=== PATIENT | female | born 1980 | race Caucasian/White ===

== ENCOUNTER 2017-01-25 12:10 | Emergency (ER) | payer MEDICAID ==
[~2017-01-25] VITALS: Ht 157.5 cm; Wt 93.3 kg
[~2017-01-25 12:10] MED LIST: BACT800T5 PO; CEPH500C3 PO; LEXA10TA PO
[2017-01-25 12:23] VITALS: BP 115/69; PULSE 98; RESP 16; TEMP 98.8; O2SAT 97
[2017-01-25] MEDS ORDERED: LEXA10TA PO (12:34)
--- NOTE | 2017-01-25 12:35 | PD ---
HPI Chief Complaint: Cold / Flu Symptoms Time Seen by Provider: 12:35 Travel History International Travel<30 days: No Contact w/Intl Traveler<30days: No Traveled to known affect area: No History of Present Illness HPI 36-year-old female presents the emergency Department with sore throat and cough for the past 5 days. Patient states present illness going through her home with similar symptoms. Patient states productive cough of green sputum over the past couple of days. Patient states she feels feverish. She denies nausea, vomiting, ear pain, postnasal drip, headache, or other significant symptoms. Patient does take Advair for COPD. She is currently in the process of trying to quit smoking. She has no known drug allergies. PFSH Past Medical History Anxiety: Yes Depression: Yes Hepatitis: Yes (C) Tetanus Vaccination: > 5 Years Influenza Vaccination: No ?: Not : 1 Para: 0 Past Surgical History Section: Yes Other Surgery: Yes (BREAST AUGMENTATION) Social History Alcohol Use: No Tobacco Use: Yes (1 PPD) Substance Use: No Allergies-Medications (Allergen,Severity, Reaction): Coded Allergies: No Known Allergies (Verified , 01/25/17) Reported Meds & Prescriptions Reported Meds & Active Scripts Active Prednisone 20 Mg Tab 20 Mg PO BID Azithromycin 500 Mg Tab 500 Mg PO DAILY Reported Lexapro (Escitalopram Oxalate) 10 Mg Tab 10 Mg PO DAILY Advair 5/250 Inhaler BID Review of Systems Except as stated in HPI: all other systems reviewed are Neg General / Constitutional: Positive: Chills, No: Fever Eyes: No: Visual changes HENT: Positive: Sore Throat, Rhinitis, Rhinorrhea, Congestion, No: Headaches, Vertigo, Lightheadedness, Nosebleed, Neck Stiffness, Neck Pain, Masses, Gingival Bleeding, Dental Difficulties, Ear Discharge, Earache Cardiovascular: No: Chest Pain or Discomfort Respiratory: Positive: Cough, Wheezing, No: Shortness of Breath, Orthopnea, Hemoptysis, Night Sweats, Pleuritic Pain Gastrointestinal: No: Nausea, Vomiting, Diarrhea, Abdominal Pain Genitourinary: No: Dysuria Musculoskeletal: No: Pain Skin: No Rash Neurologic: No: Weakness Psychiatric: No: Depression Endocrine: No: Polydipsia Hematologic/Lymphatic: No: Easy Bruising Physical Exam Narrative GENERAL: Patient appears ill but not septic. SKIN: Warm and dry. Somewhat pale. Normal turgor. HEAD: Atraumatic. Normocephalic. No sinus tenderness with palpation. EYES: Pupils equal and round. No scleral icterus. No injection or drainage. ENT: No nasal bleeding or discharge. Mucous membranes pink and moist. TMs are clear bilaterally. Posterior pharynx is unremarkable. Significant injection or postnasal drip noted. NECK: Trachea midline. Supple and nontender. CARDIOVASCULAR: Regular rate and rhythm. RESPIRATORY: No accessory muscle use. Coarse breath sounds throughout to auscultation. No significant wheezing or rales appreciated. Breath sounds equal bilaterally. GASTROINTESTINAL: Abdomen soft, non-tender, nondistended. Hepatic and splenic margins not palpable. MUSCULOSKELETAL: Extremities without clubbing, cyanosis, or edema. No obvious deformities. NEUROLOGICAL: Awake and alert. No obvious cranial nerve deficits. Motor grossly within normal limits. Five out of 5 muscle strength in the arms and legs. Normal speech. PSYCHIATRIC: Appropriate mood and affect; insight and judgment normal. Data Data Last Documented VS Vital Signs Date Time Temp Pulse Resp B/P Pulse Ox O2 Delivery O2 Flow Rate FiO2 01/25/17 12:31 18 97 Room Air 01/25/17 12:23 98.8 98 115/69 [facility] Medical Decision Making Medical Screen Exam Complete: Yes Emergency Medical Condition: Yes Differential Diagnosis Bronchitis. COPD with exacerbation. Early pneumonia. Narrative Course Patient is medically stable at time of exam. Patient is afebrile and her O2 sats are 97%. Patient will be treated empirically with Rocephin 1000 mg IM, in addition to azithromycin 500 mg daily for the next 5 days. Patient also given prednisone 20 mg twice a day for 5 days. Patient is to continue her Advair as previous. Patient should rest push fluids and follow up if symptoms continue to worsen as discussed. Diagnosis Primary Impression: Bronchitis Additional Impression: COPD exacerbation Referrals: [facility] Primary Care Physician Patient Instructions: General Instructions Additional Instructions: Patient will be treated empirically with Rocephin 1000 mg IM, in addition to azithromycin 500 mg daily for the next 5 days. Patient also given prednisone 20 mg twice a day for 5 days. Patient is to continue her Advair as previous. Patient should rest push fluids and follow up if symptoms continue to worsen as discussed. Med/Other Pt SpecificInfo: Prescription(s) given Scripts Prednisone 20 Mg Tab20 Mg PO BID #10 TAB Prov:Joon Espinosa MD 01/25/17 Azithromycin 500 Mg [id number] Mg PO DAILY #5 TAB Ref 0 Prov:Joon Espinosa MD 01/25/17 Disposition: 01 DISCHARGE HOME Condition: Stable Eduardo Guthrie January 25, 2017 12:35
[2017-01-25] MEDS ORDERED: AZIT500T2 PO (12:42)
[2017-01-25] MEDS ORDERED: PRED20 PO (12:42)
== END 2017-01-25 13:41 | disposition home or self-care (01) ==
LOC: PHEFT 12:10
DX: J40 Bronchitis, not specified as acute or chronic (principal); J44.1 Chronic obstructive pulmonary disease with (acute) exacerbation; R07.0 Pain in throat; F17.200 Nicotine dependence, unspecified, uncomplicated; Z86.59 Personal history of other mental and behavioral disorders; Z86.19 Personal history of other infectious and parasitic diseases
CPT/HCPCS: 96372; 99283; J0696

== ENCOUNTER 2018-02-01 14:35 | Emergency (ER) | payer MEDICAID ==
[~2018-02-01] VITALS: Ht 157.5 cm; Wt 83.0 kg
[~2018-02-01 14:35] MED LIST changes: +AZIT500T2 PO; -BACT800T5 PO; -CEPH500C3 PO; +PRED20 PO
[2018-02-01 14:42] VITALS: BP 125/62; PULSE 82; RESP 16; TEMP 98.4; O2SAT 98
[2018-02-01] MEDS ORDERED: SUBO8MIS SL (14:54)
[2018-02-01] MEDS ORDERED: IBUP1TAB7 PO (15:26)
[2018-02-01] MEDS ORDERED: CLIN150C14 PO (15:26)
--- NOTE | 2018-02-01 15:27 | PD ---
HPI Chief Complaint: Skin Problem Time Seen by Provider: 15:15 Travel History International Travel<30 days: No Contact w/Intl Traveler<30days: No Traveled to known affect area: No History of Present Illness HPI Patient presents with complaints of aggravated painful pilonidal cyst. States the cyst has been present for several months however in the last 2-3 days it started growing in size and pain. States it is not draining. Denies . Currently taking Suboxone. Reports that she has not been using warm compress or sitz bath. PFSH Past Medical History Anxiety: Yes Depression: Yes Diminished Hearing: No Hepatitis: Yes (C) Influenza Vaccination: No ?: Not LMP: LAST MONTH : 1 Para: 0 Past Surgical History Section: Yes Other Surgery: Yes (BREAST AUGMENTATION) Social History Alcohol Use: No Tobacco Use: Yes (1 PPD) Substance Use: No Allergies-Medications (Allergen,Severity, Reaction): Coded Allergies: No Known Allergies (Verified Adverse Reaction, Unknown, 02/01/18) Reported Meds & Prescriptions Reported Meds & Active Scripts Active Reported Suboxone Sublingual Film (Buprenorphine-Naloxone Sublingual Film) 8-2 Mg Film 1 Film SL DAILY Unique ID number required: Lexapro (Escitalopram Oxalate) 10 Mg Tab 10 Mg PO DAILY Review of Systems General / Constitutional: No: Fever Eyes: No: Visual changes HENT: No: Headaches Cardiovascular: No: Chest Pain or Discomfort Respiratory: No: Shortness of Breath Gastrointestinal: No: Abdominal Pain Genitourinary: No: Dysuria Musculoskeletal: No: Pain Skin: Positive Other (Pilonidal cyst), No Rash Neurologic: No: Weakness Psychiatric: No: Depression Endocrine: No: Polydipsia Hematologic/Lymphatic: No: Easy Bruising Physical Exam Narrative GENERAL: Well-nourished, well-developed patient. SKIN: Focused skin assessment warm/dry. HEAD: Normocephalic. EYES: No scleral icterus. No injection or drainage. NECK: Supple, trachea midline. No JVD or lymphadenopathy. CARDIOVASCULAR: Regular rate and rhythm without murmurs, gallops, or rubs. RESPIRATORY: Breath sounds equal bilaterally. No accessory muscle use. GASTROINTESTINAL: Abdomen soft, non-tender, nondistended. MUSCULOSKELETAL: No cyanosis, or edema. BACK: Nontender without obvious deformity. No CVA tenderness. Examination of pilonidal cyst reveals fluctuant abscess with cellulitic change measuring 5 cm in diameter nondraining Data Data Last Documented VS Vital Signs Date Time Temp Pulse Resp B/P (MAP) Pulse Ox O2 Delivery O2 Flow Rate FiO2 02/01/18 14:42 98.4 82 16 125/62 (83) 98 Orders Orders Wound Culture And Gram Stain (02/01/18 15:15) MDM Medical Decision Making Medical Screen Exam Complete: Yes Emergency Medical Condition: Yes Differential Diagnosis Pilonidal cyst, abscess, cellulitis Narrative Course Assessment plan discussed with patient and mother at bedside. Procedures Procedure Narrative After the risks and benefits were discussed the following procedure was performed: INCISION AND DRAINAGE OF ABSCESS: The area was prepped and was sterilely draped. Abscess was anesthetized with ethyl chloride. A number 11 scalpel was used to make a 0.5 -cm incision across the area of the abscess. Significant return of pus. cultures were obtained. Sterile dressing applied. Diagnosis Primary Impression: Pilonidal cyst with abscess Patient Instructions: General Instructions Additional Instructions: Encouraged warm compress and sitz bath, encouraged to follow-up with PCP or surgeon. Information concerning [facility] was provided. Return to emerge from with any onset of new symptoms. Med/Other Pt SpecificInfo: Prescription(s) given Scripts Ibuprofen (Ibuprofen) 800 Mg Tab 800 MG PO Q6HR Y for PAIN, #40 TAB 0 Refills Prov: Randy Oquendo MD 02/01/18 Clindamycin (Clindamycin) 150 Mg Cap 300 MG PO TID for Infection for 10 Days, CAP 0 Refills Prov: Randy Oquendo MD 02/01/18 Disposition: 01 DISCHARGE HOME Condition: Good Randy Oquendo MD February 01, 2018 15:27
[2018-02-01] MEDS ORDERED: IBUPROFEN 800 MG TAB PO ONE (15:30)
== END 2018-02-01 15:55 | disposition home or self-care (01) ==
LOC: PHED 14:35
DX: L05.01 Pilonidal cyst with abscess (principal); F17.200 Nicotine dependence, unspecified, uncomplicated
CPT/HCPCS: 10080; 87070; 87205